=== PATIENT | male | born 1995 | race Caucasian/White ===

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

== ENCOUNTER 2019-02-05 18:16 | Emergency (ER) | payer BC, OTHER ==
[~2019-02-05] VITALS: Ht 177.8 cm; Wt 79.4 kg
[~2019-02-05 18:16] MED LIST changes: +CEPH500T PO; +HYDR-34 PO
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
[2019-02-05] MEDS ORDERED: fentaNYL INJECTION 100 MCG/2 ML AMP IM ONE (18:30)
[2019-02-05] MEDS ORDERED: RX-HYDROCODONE/APAP 5/325 MG #4 TAB PK PO PRN (18:30)
[2019-02-05] MEDS ORDERED: fentaNYL INJECTION 100 MCG/2 ML AMP IVP ONE (18:45)
[2019-02-05 19:31] VITALS: BP 122/81
== END 2019-02-05 19:31 | disposition home or self-care (01) ==
LOC: EDUNIT# 18:16 → ER 18:18
DX: T20.10XA Burn of first degree of head, face, and neck, unspecified site, initial encounter (principal); T22.10XA Burn of first degree of shoulder and upper limb, except wrist and hand, unspecified site, initial encounter; T31.0 Burns involving less than 10% of body surface; F98.8 Other specified behavioral and emotional disorders with onset usually occurring in childhood and adolescence; F90.9 Attention-deficit hyperactivity disorder, unspecified type; Z77.22 Contact with and (suspected) exposure to environmental tobacco smoke (acute) (chronic); X08.8XXA Exposure to other specified smoke, fire and flames, initial encounter

== ENCOUNTER 2021-01-02 20:03 | Emergency (ER) | payer SELFPAY ==
[~2021-01-02] VITALS: Ht 177.8 cm; Wt 81.6 kg
[2021-01-02 21:16] LABS: BASOPHILS % (AUTO) 0 % (0-10); EOSINOPHILS # (AUTO) 0.4 10^3/uL (0.0-0.3); EOSINOPHILS % (AUTO) 4 % (0-10); HEMATOCRIT 46 % (40-54); HEMOGLOBIN 15.6 g/dL (13.3-17.7); LYMPHOCYTES # (AUTO) 1.8 10^3/uL (1.0-4.0); LYMPHOCYTES % (AUTO) 18 % (12-44); MEAN CORPUSCULAR HEMOGLOBIN 30 pg (25-34); MEAN CORPUSCULAR HGB CONC 34 g/dL (32-36); MEAN CORPUSCULAR VOLUME 88 fL (80-99); MEAN PLATELET VOLUME 10.3 fL (9.0-12.2); MONOCYTES # (AUTO) 0.8 10^3/uL (0.0-1.0); MONOCYTES % (AUTO) 8 % (0-12); NEUTROPHILS # (AUTO) 6.9 10^3/uL (1.8-7.8); NEUTROPHILS % (AUTO) 70 % (42-75); PLATELET COUNT 258 10^3/uL (130-400); WHITE BLOOD COUNT 9.9 10^3/uL (4.3-11.0)
--- NOTE | 2021-01-02 21:55 | ED Cough/URI ---
General Chief Complaint: Cough/Cold/Flu Symptoms Stated Complaint: COUGHING UP BLOOD Nursing Triage Note: had a respiratory illness dx at [facility], was placed on ABX, didn't finish course of treatment. now having blood in sputum. pt hx of smoker 1-1.5ppd quit x 1 week ago Sepsis Screen: No Definite Risk Source: patient Exam Limitations: no limitations History of Present Illness Date Seen by Provider: Jan 02, 2021 Time Seen by Provider: 21:45 Initial Comments Patient is a 25-year-old male who presents to the emergency department today with a chief complaint of hemoptysis. Patient states that he started coughing up blood-streaked sputum last night at around 7:00. Patient states that he has developed cough and congestion over the course of the last few days. States that he was treated for upper respiratory tract infection about 2 weeks ago, was given a course of antibiotics but only took them until he started feeling bet ter. Patient states that he feels like his infection is back. He recently quit smoking last , 1 week ago. He denies feeling short of breath. He denies postnasal drip. He denies sore throat. He states this only happened a couple of times since last night. No fevers reported. All other review of systems reviewed and negative except as stated. Timing/Duration: yesterday Severity/Quality: moderate, productive cough Associated Symptoms: cough, nasal congestion Allergies and Home Medications Allergies Coded Allergies: No Known Drug Allergies (Unverified , 02/05/19) Home Medications Cephalexin 500 Mg Tablet, 500 MG PO TID Prescribed by: RAMON DARLING on 12/12/16 1335 Hydrocodone Bit/Acetaminophen 1 Each Tablet, 1 EACH PO Q6H Prescribed by: RAMON DARLING on 12/12/16 1335 Patient Home Medication List Home Medication List Reviewed: Yes Review of Systems Review of Systems Constitutional: see HPI EENTM: nose congestion Respiratory: cough, phlegm (Blood-streaked); No short of breath Cardiovascular: no symptoms reported Gastrointestinal: no symptoms reported Genitourinary: no symptoms reported Musculoskeletal: no symptoms reported Skin: no symptoms reported All Other Systems Reviewed Negative Unless Noted: Yes Past Cekinhr-Rwffms-Nvqerg Hx Patient Social History 2nd Hand Smoke Exposure: Yes Recent Infectious Disease Expo: No Recent Hopitalizations: No Immunizations Up To Date Tetanus Booster (TDap): Less than 5yrs PED Vaccines UTD: Yes Past Medical History Surgeries: No Respiratory: No Cardiac: No Neurological: No Gastrointestinal: No Musculoskeletal: No Endocrine: No Cancer: No Psychosocial: Yes ADD/ADHD Integumentary: No Blood Disorders: No Family Medical History No Pertinent Family Hx Physical Exam Vital Signs - First Documented 01/02/21 20:43 Temp 36.0 Pulse 87 Resp 16 Pulse Ox 100 O2 Delivery Room Air Capillary Refill : Less Than 3 Seconds Height: 5'10.00" Weight: 175lbs. oz. 79.652408ft; 25.00 BMI Method:Stated General Appearance: WD/WN, no apparent distress Eyes: Bilateral Eye Normal Inspection, Bilateral Eye PERRL, Bilateral Eye EOMI HEENT: normal ENT inspection, pharynx normal (Slightly erythematous, no tonsillar exudates, no petechiae on the palate) Neck: full range of motion, supple, normal inspection Respiratory: lungs clear, normal breath sounds, no respiratory distress, no accessory muscle use Cardiovascular: regular rate, rhythm Extremities: normal range of motion Neurologic/Psychiatric: alert, normal mood/affect, oriented x 3 Skin: normal color, warm/dry Progress/Results/Core Measures Suspected Sepsis Recent Fever Within 48 Hours: No Infection Criteria Present: Suspected New Infection New/Unexplained Altered Menta: No Sepsis Screen: No Definite Risk SIRS Temperature: Pulse: 87 Respiratory Rate: 16 Laboratory Tests 01/02/21 21:05: White Blood Count 9.9 Blood Pressure / Mean: Laboratory Tests 01/02/21 21:05: Platelet Count 258 Results/Orders Lab Results Laboratory Tests Test 01/02/21 21:05 Range/Units White Blood Count 9.9 4.3-11.0 10^3/uL Red Blood Count 5.22 4.30-5.52 10^6/uL Hemoglobin 15.6 13.3-17.7 g/dL Hematocrit 46 40-54 % Mean Corpuscular Volume 88 80-99 fL Mean Corpuscular Hemoglobin 30 25-34 pg Mean Corpuscular Hemoglobin Concent 34 32-36 g/dL Red Cell Distribution Width 12.1 10.0-14.5 % Platelet Count 258 130-400 10^3/uL Mean Platelet Volume 10.3 9.0-12.2 fL Immature Granulocyte % (Auto) 0 % Neutrophils (%) (Auto) 70 42-75 % Lymphocytes (%) (Auto) 18 12-44 % Monocytes (%) (Auto) 8 0-12 % Eosinophils (%) (Auto) 4 0-10 % Basophils (%) (Auto) 0 0-10 % Neutrophils # (Auto) 6.9 1.8-7.8 10^3/uL Lymphocytes # (Auto) 1.8 1.0-4.0 10^3/uL Monocytes # (Auto) 0.8 0.0-1.0 10^3/uL Eosinophils # (Auto) 0.4 H 0.0-0.3 10^3/uL Basophils # (Auto) 0.0 0.0-0.1 10^3/uL Immature Granulocyte # (Auto) 0.0 0.0-0.1 10^3/uL My Orders Orders - DAYLIN PENA MD Chest Pa/Lat (2 View) (01/02/21 20:54) Cbc With Automated Diff (01/02/21 20:54) Covid 19 Inhouse Test (01/02/21 22:34) Vital Signs/I&O 01/02/21 01/02/21 20:43 20:43 Temp 36.0 Pulse 87 Resp 16 B/P (MAP) Pulse Ox 100 O2 Delivery Room Air Room Air Capillary Refill : Less Than 3 Seconds Progress Note : Time: 21:54 Progress Note 25-year-old male who presents to the emergency department with a chief complaint of hemoptysis. Patient has had increasing congestion and cough over the past 24 hours. Quit smoking a week ago. Evaluation today includes a physical exam as well as a CBC and two-view chest x-ray. Patient's vital signs are stable. He is not hypoxic or tachycardic. No clinical or objective findings to warrant further studies from the emergency department. At the time of this dictation chest x-ray is pending. Patient's chest x-ray is unremarkable. No signs of effusion, infiltrate or structural abnormality. The patient is asking for a Covid test prior to returning to work. One will be obtained at this visit. We will call the patient with results. Patient's vital signs are stable again he has no clinical or objective findings to warrant further studies from the ER at this time. Patient will be discharged with instructions to continue his cessation of tobacco. He is advised to take [id number]-[id number] Mucinex and Robitussin for cough. He verbalized understanding. All questions are sought and answered. Patient is stable for discharge. Departure Impression Primary Impression: Hemoptysis Additional Impression: Bronchitis Disposition: 01 HOME, SELF-CARE Condition: Stable Departure-Patient Inst. Decision time for Depature: 22:37 Referrals: BRAYDEN NEGRETE MD (PCP/Family) Primary Care Physician Patient Instructions: Bronchitis, Adult ED Add. Discharge Instructions: Drink plenty of fluids to stay well-hydrated. Take [id number]-[id number] Mucinex to help thin your secretions and make it easier to cough up your sputum. You can take srfg-pqi-[id number] Robitussin as needed for cough as well. Follow-up with your primary care physician. Return to the emergency room for any increasing cough especially associated with shortness of breath, fever or any other emergent concerning symptoms. DAYLIN PENA MD Jan 02, 2021 21:55
[2021-01-02 22:44] VITALS: BP 113/72
--- NOTE | 2021-01-03 07:20 | Diagnostic Imaging Report ---
INDICATION: Hemoptysis. PA and lateral views were obtained. FINDINGS: The heart size, mediastinal configuration, and pulmonary vascularity are within normal limits. There is no pleural effusion, pneumothorax, or pneumonia. The osseous structures are unremarkable. IMPRESSION: No acute cardiopulmonary abnormality. Dictated by: Dictated on workstation # [id number]
== END 2021-01-02 22:44 | disposition home or self-care (01) ==
LOC: EDUNIT# 20:03 → ER 20:05
DX: J40 Bronchitis, not specified as acute or chronic (principal); Z87.891 Personal history of nicotine dependence; Z77.22 Contact with and (suspected) exposure to environmental tobacco smoke (acute) (chronic)
CPT/HCPCS: 36415; 71046; 85025

== ENCOUNTER 2021-04-24 20:47 | Emergency (ER) | payer SELFPAY ==
[~2021-04-24] VITALS: Ht 177 cm; Wt 72.5 kg
[2021-04-24 20:47] VITALS: BP 130/89
[2021-04-24] MEDS ORDERED: NS IV 1000 ML 1,000 ML IV SCH (21:00)
[2021-04-24] MEDS ORDERED: CHARCOAL/AQUEOUS 50 GM/240 ML BTL PO ONE (21:00)
[2021-04-24 21:01] LABS: MEAN CORPUSCULAR VOLUME 90 fL (80-99)
[2021-04-24 21:03] LABS: BASOPHILS % (AUTO) 0 % (0-10); EOSINOPHILS # (AUTO) 0.1 10^3/uL (0.0-0.3); EOSINOPHILS % (AUTO) 2 % (0-10); LYMPHOCYTES # (AUTO) 0.7 10^3/uL (1.0-4.0); LYMPHOCYTES % (AUTO) 22 % (12-44); MEAN CORPUSCULAR HEMOGLOBIN 30 pg (25-34); MEAN CORPUSCULAR HGB CONC 34 g/dL (32-36); MEAN PLATELET VOLUME 10.5 fL (9.0-12.2); MONOCYTES # (AUTO) 0.3 10^3/uL (0.0-1.0); MONOCYTES % (AUTO) 10 % (0-12); NEUTROPHILS # (AUTO) 2.2 10^3/uL (1.8-7.8); NEUTROPHILS % (AUTO) 66 % (42-75); PLATELET COUNT 104 10^3/uL (130-400); WHITE BLOOD COUNT 3.4 10^3/uL (4.3-11.0)
[2021-04-24 21:05] LABS: BILIRUBIN,URINE NEGATIVE (NEGATIVE); CLARITY,URINE SL CLOUDY; COLOR,URINE ORANGE; GLUCOSE, URINE (UA) NEGATIVE (NEGATIVE); KETONES,URINE NEGATIVE (NEGATIVE); LEUKOCYTE ESTERASE ,URINE NEGATIVE (NEGATIVE); NITRITE,URINE NEGATIVE (NEGATIVE); PH,URINE 5.5 (5-9); PROTEIN,URINE NEGATIVE (NEGATIVE)
--- NOTE | 2021-04-24 21:06 | ED Psychosocial ---
General Chief Complaint: Overdose Stated Complaint: OVERDOSE Source: patient, EMS Exam Limitations: no limitations History of Present Illness Date Seen by Provider: Apr 24, 2021 Time Seen by Provider: 20:46 Initial Comments This is a 26 yo male who presented to the ED via [facility] with suicide attempt by oral medication ingestion. States "life sucks" and he wants to end it. Attempted to hang himself yesterday, but states the rope broke. He took apx. 100 tabs of Ibuprofen, handful of Valium unknown dose, and whole bottle of children's cough syrup around 1999 this evening. Allergies and Home Medications Allergies Coded Allergies: No Known Drug Allergies (Unverified , 02/05/19) Home Medications Cephalexin 500 Mg Tablet, 500 MG PO TID Prescribed by: RAMON DARLING on 12/12/16 1335 Hydrocodone Bit/Acetaminophen 1 Each Tablet, 1 EACH PO Q6H Prescribed by: RAMON DARLING on 12/12/16 1335 Patient Home Medication List Home Medication List Reviewed: Yes Review of Systems Constitutional: no symptoms reported EENTM: no symptoms reported Respiratory: no symptoms reported Cardiovascular: no symptoms reported Gastrointestinal: no symptoms reported Genitourinary: no symptoms reported Musculoskeletal: no symptoms reported Skin: no symptoms reported Psychiatric/Neurological: No Symptoms Reported Past Wmmgnaw-Lhionk-Gzkbcs Hx Immunizations Up To Date Tetanus Booster (TDap): Less than 5yrs PED Vaccines UTD: Yes Past Medical History Surgeries: No Respiratory: No Cardiac: No Neurological: No Genitourinary: No Gastrointestinal: No Musculoskeletal: No Endocrine: No HEENT: No Cancer: No Psychosocial: Yes ADD/ADHD Integumentary: No Blood Disorders: No Family Medical History No Pertinent Family Hx Physical Exam Vital Signs - First Documented 04/24/21 20:47 Temp 37.0 Pulse 97 Resp 16 B/P (MAP) 130/89 (103) Pulse Ox 99 O2 Delivery Room Air Capillary Refill : Height, Weight, BMI Height: 5'10.00" Weight: 175lbs. oz. 79.001533ez; 25.00 BMI Method:Stated General Appearance: WD/WN, no apparent distress HEENT: PERRL/EOMI, normal ENT inspection, pharynx normal Neck: full range of motion, normal inspection Respiratory: lungs clear, normal breath sounds, no respiratory distress Cardiovascular: normal peripheral pulses, regular rate, rhythm, no murmur Peripheral Pulses: 2+ Radial Pulses (R), 2+ Radial Pulses (L) Gastrointestinal: normal bowel sounds, non tender, soft, no organomegaly, no pulsatile mass Extremities: normal range of motion, non-tender, normal inspection, no calf tenderness Neurologic/Psychiatric: no motor/sensory deficits, alert, normal mood/affect, oriented x 3 Appearance/Memory: disheveled, impaired insight Behavior/Eye Contact: good eye contact, normal speech, belligerent, compulsive Thoughts/Hallucinations: normal thought pattern, no apparent hallucination Skin: normal color, warm/dry Progress/Results/Core Measures Results/Orders Lab Results Laboratory Tests Test 04/24/21 20:50 04/24/21 20:55 Range/Units White Blood Count 3.4 L 4.3-11.0 10^3/uL Red Blood Count 2.22 L 4.30-5.52 10^6/uL Hemoglobin 6.7 *L 13.3-17.7 g/dL Hematocrit 20 *L 40-54 % Mean Corpuscular Volume 90 80-99 fL Mean Corpuscular Hemoglobin 30 25-34 pg Mean Corpuscular Hemoglobin Concent 34 32-36 g/dL Red Cell Distribution Width 12.1 10.0-14.5 % Platelet Count 104 L 130-400 10^3/uL Mean Platelet Volume 10.5 9.0-12.2 fL Immature Granulocyte % (Auto) 0 % Neutrophils (%) (Auto) 66 42-75 % Lymphocytes (%) (Auto) 22 12-44 % Monocytes (%) (Auto) 10 0-12 % Eosinophils (%) (Auto) 2 0-10 % Basophils (%) (Auto) 0 0-10 % Neutrophils # (Auto) 2.2 1.8-7.8 10^3/uL Lymphocytes # (Auto) 0.7 L 1.0-4.0 10^3/uL Monocytes # (Auto) 0.3 0.0-1.0 10^3/uL Eosinophils # (Auto) 0.1 0.0-0.3 10^3/uL Basophils # (Auto) 0.0 0.0-0.1 10^3/uL Immature Granulocyte # (Auto) 0.0 0.0-0.1 10^3/uL Percent Immature Platelet Fraction 4.5 0.0-7.6 % Sodium Level 141 135-145 MMOL/L Potassium Level 3.2 L 3.6-5.0 MMOL/L Chloride Level 107 98-107 MMOL/L Carbon Dioxide Level 24 21-32 MMOL/L Anion Gap 10 5-14 MMOL/L Blood Urea Nitrogen 6 L 7-18 MG/DL Creatinine 1.01 0.60-1.30 MG/DL Estimat Glomerular Filtration Rate 91 BUN/Creatinine Ratio 6 Glucose Level 114 H 70-105 MG/DL Calcium Level 8.5 8.5-10.1 MG/DL Corrected Calcium 8.5 8.5-10.1 MG/DL Total Bilirubin 0.4 0.1-1.0 MG/DL Aspartate Amino Transf (AST/SGOT) 18 5-34 U/L Alanine Aminotransferase (ALT/SGPT) 21 0-55 U/L Alkaline Phosphatase 50 40-136 U/L Total Protein 5.9 L 6.4-8.2 GM/DL Albumin 4.0 3.2-4.5 GM/DL Amylase Level 24 L 25-125 U/L Salicylates Level < 5.0 L 5.0-20.0 MG/DL Acetaminophen Level < 10 L 10-30 UG/ML Serum Alcohol < 10 <10 MG/DL Urine Color ORANGE Urine Clarity SL CLOUDY Urine pH 5.5 5-9 Urine Specific [place] >=1.030 1.016-1.022 Urine Protein NEGATIVE NEGATIVE Urine Glucose (UA) NEGATIVE NEGATIVE Urine Ketones NEGATIVE NEGATIVE Urine Nitrite NEGATIVE NEGATIVE Urine Bilirubin NEGATIVE NEGATIVE Urine Urobilinogen 1.0 < = 1.0 MG/DL Urine Leukocyte Esterase NEGATIVE NEGATIVE Urine RBC (Auto) NEGATIVE NEGATIVE Urine RBC NONE /HPF Urine WBC RARE /HPF Urine Crystals PRESENT H /LPF Urine Amorphous Sediment RARE [place] URATES H /LPF Urine Bacteria NEGATIVE /HPF Urine Casts PRESENT /LPF Urine Hyaline Casts 0-2 H /LPF Urine Mucus MODERATE H /LPF Urine Culture Indicated NO Urine Opiates Screen NEGATIVE NEGATIVE Urine Oxycodone Screen NEGATIVE NEGATIVE Urine Methadone Screen NEGATIVE NEGATIVE Urine Propoxyphene Screen NEGATIVE NEGATIVE Urine Barbiturates Screen NEGATIVE NEGATIVE Ur Tricyclic Antidepressants Screen NEGATIVE NEGATIVE Urine Phencyclidine Screen NEGATIVE NEGATIVE Urine Amphetamines Screen POSITIVE H NEGATIVE Urine Methamphetamines Screen POSITIVE H NEGATIVE Urine Benzodiazepines Screen NEGATIVE NEGATIVE Urine Cocaine Screen NEGATIVE NEGATIVE Urine Cannabinoids Screen NEGATIVE NEGATIVE My Orders Orders - EUGENIO MARTINEZ [employer] Ua Culture If Indicated (04/24/21 20:53) Cbc With Automated Diff (04/24/21 20:53) Comprehensive Metabolic Panel (04/24/21 20:53) Alcohol (04/24/21 20:53) Drug Screen Stat (Urine) (04/24/21 20:53) Acetaminophen (04/24/21 20:53) Salicylate (04/24/21 20:53) Ekg Tracing (04/24/21 20:53) Ed Iv/Invasive Line Start (04/24/21 20:53) Amylase (04/24/21 20:53) Monitor-Rhythm Ecg Trace Only (04/24/21 20:53) Ns Iv 1000 Ml (Sodium Chloride 0.9%) (04/24/21 21:00) Ekg Tracing (04/24/21 20:57) End Tidal Co2 (04/24/21 20:57) Ibuprofen Level (04/24/21 20:57) Charcoal Activated Aqueous (Actidose Aqu (04/24/21 21:00) Arterial Blood Gas (04/24/21 21:00) Covid 19 Inhouse Test (04/24/21 21:06) Type And Screen (04/24/21 21:50) Red Cells Leukocytes Reduced (04/24/21 21:50) Medications Given in ED Current Medications Medications Dose Ordered Sig/Gurdeep Route Start Time Stop Time Status Last Admin Dose Admin Charcoal 50 gm ONCE ONCE PO 04/24/21 21:00 04/24/21 21:01 DC 04/24/21 21:03 50 GM Vital Signs/I&O 04/24/21 20:47 Temp 37.0 Pulse 97 Resp 16 B/P (MAP) 130/89 (103) Pulse Ox 99 O2 Delivery Room Air Departure Impression Primary Impression: Drug overdose Additional Impressions: Suicide attempt by drug overdose Low hemoglobin Disposition: AGAINST MEDICAL ADVICE Condition: Against Medical Advice Departure-Patient Inst. Referrals: [facility] (PCP/Family) Primary Care Physician Patient Instructions: ALCOHOL AND SUBSTANCE ABUSE EUGENIO MARTINEZ APRN Apr 24, 2021 21:06
[2021-04-24 21:20] LABS: HEMATOCRIT 20 % (40-54); HEMOGLOBIN 6.7 g/dL (13.3-17.7)
[2021-04-24 21:26] LABS: CHLORIDE 107 MMOL/L (98-107); POTASSIUM 3.2 MMOL/L (3.6-5.0); SODIUM 141 MMOL/L (135-145)
[2021-04-24 21:28] LABS: AMYLASE 24 U/L (25-125); CALCIUM 8.5 MG/DL (8.5-10.1)
[2021-04-24 21:29] LABS: GLUCOSE 114 MG/DL (70-105); TOTAL PROTEIN 5.9 GM/DL (6.4-8.2)
[2021-04-24 21:30] LABS: AMORPHOUS SEDIMENT,UR RARE AMOR URATES /LPF; BACTERIA,URINE NEGATIVE /HPF; HYALINE CASTS, URINE 0-2 /LPF; WBC,URINE RARE /HPF
[2021-04-24 21:30] LABS: CARBON DIOXIDE 24 MMOL/L (21-32)
[2021-04-24 21:31] LABS: BILIRUBIN,TOTAL 0.4 MG/DL (0.1-1.0)
[2021-04-24 21:33] LABS: ALKALINE PHOSPHATASE 50 U/L (40-136); CREATININE SERUM 1.01 MG/DL (0.60-1.30); GFR ESTIMATED 91
[2021-04-24 21:34] LABS: BUN/CREATININE RATIO 6
[2021-04-24 21:35] LABS: SALICYLATE < 5.0 MG/DL (5.0-20.0)
[2021-04-24 21:36] LABS: ALANINE AMINOTRANSFERASE 21 U/L (0-55)
[2021-04-24 21:38] LABS: ACETAMINOPHEN < 10 UG/ML (10-30)
[2021-04-24 21:50] LABS: AMPHETAMINE SCREEN, URINE POSITIVE (NEGATIVE); BARBITURATE SCREEN URINE NEGATIVE (NEGATIVE); BENZODIAZEPINES SCREEN URINE NEGATIVE (NEGATIVE); CANNABINOID SCREEN, URINE NEGATIVE (NEGATIVE); COCAINE SCREEN URINE NEGATIVE (NEGATIVE); METHADONE STAT NEGATIVE (NEGATIVE); METHAMPHETAMINE SCREEN URINE S POSITIVE (NEGATIVE); OPIATE SCREEN URINE NEGATIVE (NEGATIVE); OXYCODONE STAT NEGATIVE (NEGATIVE); PROPOXYPHENE STAT NEGATIVE (NEGATIVE); TRICYCLIC ANTIDEPRESSANTS SCRE NEGATIVE (NEGATIVE)
== END 2021-04-24 22:08 | disposition left against medical advice (07) ==
LOC: EDUNIT# 20:47 → ER 20:51
DX: T39.312A Poisoning by propionic acid derivatives, intentional self-harm, initial encounter (principal); D64.9 Anemia, unspecified; X83.8XXA Intentional self-harm by other specified means, initial encounter
CPT/HCPCS: 80053; 80299; 80306; 81000; 82150; 85025; 86850; 86900; 86901; 86920; 93005; 93041; 99284; G0480 ×3; 36415; 80320; 80329